=== PATIENT | female | born 1955 | race African-American/Black ===

== ENCOUNTER 2022-09-01 20:53 | Observation (INO) | payer OTHER ==
[2022-09-01 22:47] VITALS: BMI 34.5
[2022-09-01] MEDS ORDERED: Ondansetron PF 4 MG/2 ML Vial IVP PRN (23:18)
[2022-09-01] MEDS ORDERED: Nitroglycerin 0.4 MG TAB (25 Tab Bottle) SL PRN (23:18)
[2022-09-01] MEDS ORDERED: Acetaminophen 325 MG TAB PO PRN (23:18)
[2022-09-01] MEDS ORDERED: Dextrose 50% Abboject 50 ML SYRINGE SLOW IVP PRN (23:21)
[2022-09-01] MEDS ORDERED: HumaLOG 300 UNITS/3 ML VIAL SC PRN ×2 (23:21)
[2022-09-01] MEDS ORDERED: Dextrose 5% in Water 1,000 ML IV PRN (23:21)
[2022-09-02 01:16] LABS: Troponin I 0.022 ng/mL (< 0.028)
[2022-09-02 06:59] LABS: #Eosinphils 0.2 thou/uL (0.0-0.7); #Lymphocytes 1.8 thou/uL (1.20-3.40); #Monocytes 0.3 thou/uL (0.11-0.59); #Neutrophils 2.3 thou/uL (1.40-6.50); %Basophils 0.5 % (0.0-1.0); %Eosinophils 3.7 % (0.0-10.0); %Lymphocytes 39.1 % (21.0-51.0); %Monocytes 6.7 % (0.0-10.0); %Neutrophils 49.9 % (42.0-75.0); Hemoglobin 14.8 g/dL (12.0-16.0); Mean Corpuscular Hemoglobin 27.5 pg (27.0-31.0); Mean Corpuscular Volume 88.7 fl (78.0-98.0); Mean Platelet Volume 9.8 fL (7.4-10.4); Platelet Count 165 10x3/uL (130-400); RBC Distribution Width 14.1 % (11.5-14.5); Red Blood Cell (RBC) Count 5.39 mill/uL (4.20-5.40); White Blood Cell (WBC) Count 4.5 10x3/uL (4.8-10.8)
[2022-09-02 07:16] LABS: Anion Gap 15 mmol/L (10-20); BUN (Urea Nitrogen) 24 mg/dL (9.8-20.1); Calc. Creatinine Clearance 58 mL/min (70-130); Calcium 9.7 mg/dL (7.8-10.44); Carbon Dioxide 21 mmol/L (23-31); Chloride 107 mmol/L (98-107); Estimated GFR 43; Glucose 92 mg/dL (80-115); Potassium 3.6 mmol/L (3.5-5.1); Sodium 139 mmol/L (136-145)
[2022-09-02 07:22] LABS: Troponin I 0.023 ng/mL (< 0.028)
[2022-09-02] MEDS ORDERED: Empagliflozin 25 MG TAB PO SCH (09:00)
[2022-09-02] MEDS ORDERED: Furosemide 20 MG TAB PO SCH (09:00)
[2022-09-02] MEDS ORDERED: Aspirin Chewable 81 MG TAB PO SCH ×2 (09:00)
[2022-09-02] MEDS ORDERED: Non-Formulary Item 1 EACH (Sacubitril/Valsartan [Entresto 97 Mg-103 Mg Tablet] 1 EACH Tab PO SCH (09:00)
[2022-09-02] MEDS ORDERED: Non-Formulary Item 1 EACH (Dapagliflozin Propanediol [Farxiga] 10 MG Tablet) PO SCH (09:00)
[2022-09-02] MEDS ORDERED: Bupropion 150 MG XL TAB PO SCH (09:00)
[2022-09-02] MEDS ORDERED: Sacubitril 49 MG/Valsartan 51 MG TABLET PO SCH (09:00)
[2022-09-02 11:29] VITALS: BP 155/85
[2022-09-02 11:33] VITALS: TEMP 97.5
[2022-09-02] MEDS ORDERED: Clopidogrel Bisulfate 300 MG TAB PO SCH (13:15)
[2022-09-02] MEDS ORDERED: Amlodipine 5 MG TAB PO SCH (13:15)
[2022-09-02] MEDS ORDERED: Acetaminophen 325 MG TAB PO SCH (14:00)
[2022-09-02] MEDS ORDERED: Ezetimibe 10 MG TAB PO SCH (21:00)
[2022-09-02] MEDS ORDERED: Rosuvastatin 20 MG TAB PO SCH (21:00)
[2022-09-03] MEDS ORDERED: Clopidogrel Bisulfate 75 MG TAB PO SCH (09:00)
[2022-09-03] MEDS ORDERED: Amlodipine 5 MG TAB PO SCH (09:00)
== END 2022-09-02 15:05 | disposition home or self-care (01) ==
LOC: 2SW 22:22
PROVIDERS: ADMIT Internal Medicine; ATTEND Internal Medicine
DX: R07.89 Other chest pain (principal); I25.119 Atherosclerotic heart disease of native coronary artery with unspecified angina pectoris; I13.0 Hypertensive heart and chronic kidney disease with heart failure and stage 1 through stage 4 chronic kidney disease, or unspecified chronic kidney disease; E11.22 Type 2 diabetes mellitus with diabetic chronic kidney disease; N18.30 Chronic kidney disease, stage 3 unspecified; I50.32 Chronic diastolic (congestive) heart failure; E78.00 Pure hypercholesterolemia, unspecified; R42 Dizziness and giddiness; Z79.82 Long term (current) use of aspirin; Z79.84 Long term (current) use of oral hypoglycemic drugs; Z79.899 Other long term (current) drug therapy; Z88.2 Allergy status to sulfonamides
CPT/HCPCS: 78452; 80048; 82962; 84484 ×2; 85025; 93017; A9500; 36415; 36416; G0378